=== PATIENT | female | born 1975 | race Caucasian/White ===

== ENCOUNTER 2020-05-05 18:56 | Emergency (ER) | payer OTHER ==
[2020-05-05 20:32] LABS: HEMOGLOBIN 13.5 gm/dl (12.3-15.3); RED BLOOD COUNT 4.73 M/UL (4.00-5.10); WHITE BLOOD COUNT 9.8 K/UL (4.5-11.0)
[2020-05-05 20:50] LABS: BUN/CREATININE RATIO 20 (0-10)
[2020-05-05] MEDS ORDERED: NAPROSYN500 MG PO (21:35)
[2020-05-05] MEDS ORDERED: CEFUROXIME500 MG PO (21:35)
[2020-05-05] MEDS ORDERED: CYCLOBENZAPRINE5 MG PO (21:35)
== END 2020-05-05 21:37 | disposition home or self-care (01) ==
LOC: ER1 18:56
PROVIDERS: Physician Assistant
DX: S29.012A Strain of muscle and tendon of back wall of thorax, initial encounter (principal); S39.012A Strain of muscle, fascia and tendon of lower back, initial encounter; J32.9 Chronic sinusitis, unspecified; R82.71 Bacteriuria; M51.37 Other intervertebral disc degeneration, lumbosacral region; M47.817 Spondylosis without myelopathy or radiculopathy, lumbosacral region; I10 Essential (primary) hypertension; Z87.442 Personal history of urinary calculi; X50.9XXA Other and unspecified overexertion or strenuous movements or postures, initial encounter; X50.1XXA Overexertion from prolonged static or awkward postures, initial encounter; Y92.009 Unspecified place in unspecified non-institutional (private) residence as the place of occurrence of the external cause
CPT/HCPCS: 36415; 71046; 72100; 80053; 81001; 84703; 85025; 96372; 99283; J1885

== ENCOUNTER 2020-06-17 01:11 | Emergency (ER) | payer OTHER ==
[~2020-06-17 01:11] MED LIST: CEFUROXIME500 MG PO; CYCLOBENZAPRINE5 MG PO; NAPROSYN500 MG PO
== END 2020-06-17 02:45 | disposition left against medical advice (07) ==
LOC: ER1 01:11
DX: Z53.21 Procedure and treatment not carried out due to patient leaving prior to being seen by health care provider (principal)

== ENCOUNTER 2020-06-17 23:21 | Emergency (ER) | payer OTHER | END 2020-06-18 02:25 | disposition left against medical advice (07) | LOC: ER1 23:21 | DX: Z53.21 Procedure and treatment not carried out due to patient leaving prior to being seen by health care provider (principal) ==